=== PATIENT | female | born 1985 | race Caucasian/White ===

== ENCOUNTER 2023-03-06 08:33 | Emergency (ER) | payer OTHER, BC ==
[~2023-03-06] VITALS: Ht 157.5 cm; Wt 111.1 kg
[~2023-03-06 08:33] MED LIST: FLUOXETINE HCL20 MG PO
[2023-03-06] MEDS ORDERED: LISINOPRIL-HCT1 EACH PO (08:49)
[2023-03-06 09:27] VITALS: BP 130/70
== END 2023-03-06 09:27 | disposition home or self-care (01) ==
LOC: ED 08:33
DX: S61.213A Laceration without foreign body of left middle finger without damage to nail, initial encounter (principal); W26.8XXA Contact with other sharp object(s), not elsewhere classified, initial encounter; Y99.0 Civilian activity done for income or pay; Z88.0 Allergy status to penicillin; Z79.899 Other long term (current) drug therapy
CPT/HCPCS: 99282

== ENCOUNTER 2025-09-01 05:47 | Inpatient (IN) | payer BC ==
[2025-09-01] VITALS (8 sets, daily range): BP systolic 118–148; BP diastolic 62–95
[~2025-09-01] VITALS: Ht 157.5 cm; Wt 114.0 kg
--- NOTE | ~2025-09-01 | OR ---
[facility] [address] [place] [address] Draft DATE OF OPERATION: 09/01/2025 SURGEON: Sreedhar Rueda MD PREOPERATIVE DIAGNOSIS: Menorrhagia. POSTOPERATIVE DIAGNOSIS: Menorrhagia. PROCEDURE: Total vaginal hysterectomy converted to total abdominal hysterectomy via Pfannenstiel skin incision. FINDINGS: A 12-week size uterus, normal fallopian tubes and ovaries. ANESTHESIA: General plus local. BRONZER: None. IV FLUID: 1600 mL crystalloid. ESTIMATED BLOOD LOSS: 450 mL. URINE OUTPUT: 60 mL clear urine. DRAINS: Rabago to gravity. SPECIMENS: Uterus, cervix and bilateral fallopian tubes. COUNTS: Correct x2. PATIENT NAME: YOLETTE JEFFRIES OPERATIVE REPORT DATE OF : 87 REPORT #: [id number] PHYSICIAN: SREEDHAR RUEDA MD PCP: NO PRIMARY CARE PHYSICIAN REPORT IS CONFIDENTIAL AND NOT TO BE RELEASED WITHOUT AUTHORIZATION [facility] [address] [place] [address] Draft COMPLICATIONS: None. TECHNIQUE IN DETAIL: With informed consent and negative hCG, patient was taken to the operating room where she was given general endotracheal anesthesia. She was given 2 g of Ancef intravenously for perioperative infection prophylaxis. Lower extremities also had been placed in SCD pneumatic compression devices for DVT prophylaxis. Her lower extremities were placed in low lithotomy position using Yellofin stirrups. She was then prepped and draped in sterile fashion and a time-out was performed per protocol. Her lower extremities were then placed in high lithotomy position. A short posterior weighted speculum was placed into the vagina. She was also placed in Trendelenburg position. Single-tooth tenaculum was placed on the cervix. The junction between the bladder and the cervix was marked with the electrocautery device. The junction between the cervical mucosa and the posterior cul-de-sac mucosa was also marked. A total of 20 mL of 0.5% Marcaine with epinephrine were injected circumferentially around the cervix. Using the electrocautery device an incision was made around the entire cervix. We then placed an Allis on the anterior mucosa for elevation. Using Metzenbaum scissors we dissected away the underlying cervicovaginal fascia from the cervix. Once we had advanced proximally a cm I used blunt dissection to dissect away the overlying cervicovaginal fascia from the cervix. Attempts to identify the peritoneum were made but were unsuccessful. Attention was then turned to the posterior cul-de-sac. The recto-cervical fascia was sharply dissected away from the cervix. Once we got down into the layer of the posterior peritoneum, this was incised with Torres scissors. An 0 Vicryl suture was placed to tag the posterior peritoneum to the posterior cuff. A long posterior weighted speculum was then placed. There was indirect visualization of intraabdominal fat. Using a curved Britton clamp, the left uterosacral ligament was clamped, cut, and suture ligated with 0 Vicryl. The same procedure was carried out on the right uterosacral ligament. We then attempted to identify the peritoneum anteriorly again and we were unable to do this. I then performed a bit more sharp dissection to advance up the cervix and try to identify the anterior peritoneum again but was unsuccessful. I then used a curved Kenton to clamp, cut and ligate the cardinal ligament, first on the left then on the right side. I then turned my attention to the anterior cervix again. I then sharply dissected and bluntly dissected away the overlying cervical vaginal fascia from the cervix and lower uterine segment. At this point, I made the assessment that I had gone a little bit deep into the cervix, so I pulled the tissue distally towards me and began sharp dissection above the tissue that I thought was part of the cervix. I was then able to identify a plane that I believe to be between the bladder and the lower uterine segment. I identified what I believe to be PATIENT NAME: YOLETTE JEFFRIES OPERATIVE REPORT DATE OF : [birth year] REPORT #: [id number] PHYSICIAN: SREEDHAR RUEDA MD PCP: NO PRIMARY CARE PHYSICIAN REPORT IS CONFIDENTIAL AND NOT TO BE RELEASED WITHOUT AUTHORIZATION [facility] [address] [place], [place] [address] Draft the anterior peritoneum and then grasped it and elevated it and incised it with Metzenbaum scissors. At this point, I was not certain whether or not I had entered the peritoneum. So, I decided to take another bite of the cardinal ligament and used a curved Kenton to clamp, cut and ligate the left and right cardinal ligaments again. I believe on the patient's right side I was able to clamp, cut and ligate the right uterine artery. I then attempted to attain the anterior cul-de-sac again. I placed a right angle retractor, but it was not able to advance. I used my finger and felt then made the assessment that I may have gotten anteriorly, so I used a Zahra to place the retractor anteriorly. This passed easily and went past the uterine fundus. At this point, I made attempts to identify intraabdominal fat, but I was unable. I was also unable to feel with my finger to the top of the uterus. At this point, I had concern that the bladder may have been entered. I then took a straight catheter and emptied the bladder and approximately 25 mL of clear urine came out. This was very reassuring. I made further attempts to identify pelvic and intraabdominal contents anteriorly but I was unable. At this point, I could not be 100% certain that I was not somehow in the bladder and was concerned that continuing to clamp, cut and ligate might risk the bladder and I might be cutting and ligating the bladder. At this time, I made the decision to convert to an abdominal approach for patient's safety. At this point, the surgical site was assessed to be hemostatic. A vaginal pack was placed. We needed to take down the drape and performed an instrument and sponge count as well as do an abdominal prep. This of course took several minutes. Once this was performed and the abdomen was ready, I made an approximately 8 inch Pfannenstiel skin incision. Sharp dissection was carried down to the layer of the rectus fascia which was nicked in the midline. This rectus lidia was enlarged bilaterally using sharp dissection. The rectus muscles were taken down from the fascia using a combination of sharp and blunt dissection both superiorly and inferiorly. The rectus muscles were in the midline and the separation was carried out inferiorly using sharp and blunt dissection. Peritoneum was entered bluntly. Peritoneal opening was enlarged with sharp dissection. The bowel was then packed with moist laparotomy sponges. An Stuart retractor was inserted into the abdomen. The left and right tubo-ovarian ligaments were grasped with zeppelins so that the uterus could be elevated. Assessment was then made of the bladder and the initial assessment was that the bladder was intact and had not been entered. At this point, the left round ligament was grasped with a Elham, elevated, and suture ligated with 0 Vicryl. The medial aspect of the round ligament was transected with electrocautery device. The broad ligament was entered. The tubo-ovarian ligament between ovary and uterus was clamped, cut, and suture ligated with 0 Vicryl. First flashed and then complete ligation. The left uterine artery was skeletonized and then clamped, cut, and suture ligated with 0 Vicryl. Attention was then turned to the right side. The right round ligament was grasped with a Elham, elevated, and suture ligated PATIENT NAME: YOLETTE JEFFRIES OPERATIVE REPORT DATE OF : [birth year] REPORT #: [id number] PHYSICIAN: SREEDHAR RUEDA MD PCP: NO PRIMARY CARE PHYSICIAN REPORT IS CONFIDENTIAL AND NOT TO BE RELEASED WITHOUT AUTHORIZATION [facility] [address] [place], [place] [address] Draft with 0 Vicryl. The medial aspect was transected with electrocautery. The broad ligament was opened. The bladder flap was developed a little bit more on the right side as needed. The tubo-ovarian ligament on the right side was then clamped with a curved Britton clamp and suture ligated x2. The tenacula were left from the vaginal portion were removed vaginally and the uterus was removed. At this point, a Rabago catheter was placed and we filled the bladder with 180 mL of sterile saline. The bladder was then inspected and found to be appropriately enlarged and completely intact. At this point, the left fallopian tube was grasped with Lonsdale and using the hand-held LigaSure device the tube was excised along the mesosalpinx. The same procedure was carried on the right fallopian tube using the ligature hand-held device. Of note, we identified the fimbria of the fallopian tube on both sides ensuring that we were removing the tube. The pedicles were inspected and the left pedicle was slightly oozy, so I used an 0 Vicryl jydgtk-bp-dkjoj stitch in that region where the left fallopian tube was removed and this rendered that hemostatic. I then irrigated the pelvis. I inspected from above and found everything to be hemostatic. All sutures were removed from above. The rectus muscles were then reapproximated using 2-0 chromic in a running fashion. The rectus muscle bellies were inspected. There was one area of oozing was noted on the right side and using a 2-0 chromic this was rendered hemostatic with a hwdbns-zu-btfzu stitch. The rectus fascia was then reapproximated using 0 Vicryl in a running fashion. Superficial incision was irrigated and rendered hemostatic with the electrocautery device. The subcutaneous tissue was reapproximated with 2-0 chromic in a running fashion and the skin was reapproximated with Insorb stapler device. At this point, attention was turned down below. The pedicles were inspected as well as the posterior cuff. There was some oozing on the right pedicle which was rendered hemostatic with an 0 Vicryl shallow pglbdy-xp-xphva stitch. The posterior vaginal cuff was then closed using a 2-0 Vicryl running lock stitch. This improved hemostasis significantly. All pedicles were then inspected from below and all were found to be hemostatic. We then closed the vaginal cuff from below using 0 Vicryl hfjgxr-mz-lrifz stitch in a running locked fashion starting from the anterior aspect and proceeding posteriorly. Estradiol laden vaginal pack was then placed. The Rabago had been removed once we were sure that the bladder was intact. A new Rabago was then placed and a large amount of clear urine escaped the bladder and was seen in the Rabago tube. All sponge and instrument counts were correct. DISPOSITION: The patient was extubated in the operating room and she was taken to the recovery room in stable condition. PATIENT NAME: YOLETTE JEFFRIES OPERATIVE REPORT DATE OF : [birth year] REPORT #: [id number] PHYSICIAN: SREEDHAR RUEDA MD PCP: NO PRIMARY CARE PHYSICIAN REPORT IS CONFIDENTIAL AND NOT TO BE RELEASED WITHOUT AUTHORIZATION [address] [address] Draft MD AGUSTINA Basilio/YAMILA /[id number] Copies: ~ PATIENT NAME: YOLETTE JEFFRIES OPERATIVE REPORT DATE OF : [birth year] REPORT #: [id number] PHYSICIAN: SREEDHAR RUEDA MD PCP: NO PRIMARY CARE PHYSICIAN REPORT IS CONFIDENTIAL AND NOT TO BE RELEASED WITHOUT AUTHORIZATION
[~2025-09-01 05:47] MED LIST changes: +DULOXETINE HCL60 MG PO; +LACTATED RINGER'S 1,000 ML IV SCH; +LISINOPRIL-HCT1 EACH PO; +VITAMIN D21250 MCG PO; +VITAMIN D325 MC2 PO
[2025-09-01] MEDS ORDERED: ROCURONIUM BROMIDE 50 MG/5 ML SYR ONE ×2 (06:52→10:02)
[2025-09-01] MEDS ORDERED: LIDOCAINE HCL 2% 5 ML SDV ONE (06:52)
[2025-09-01] MEDS ORDERED: CEFAZOLIN SODIUM 2 GM in SODIUM CHLORIDE 0.9% 100 ML IV SCH (07:00)
[2025-09-01] MEDS ORDERED: LIDOCAINE HCL 1% 5 ML SDV INJ ONE (07:00)
[2025-09-01] MEDS ORDERED: IBLOOD GLUCOSE TEST STRIP 1 EA TEST VI PRN ×2 (07:00→09:15)
[2025-09-01] MEDS ORDERED: LIDOCAINE 1% W/ EPI 1:200,000 30 ML SDV ONE (07:04)
[2025-09-01] MEDS ORDERED: BUPIVACAINE HCL 0.5% 30 ML VIAL ONE (07:04)
[2025-09-01] MEDS ORDERED: estradioL 0.01% 42.5 GM TUBE ONE (07:05)
[2025-09-01] MEDS ORDERED: fentaNYL citrate 100 MCG/2 ML VIAL ONE (08:29)
[2025-09-01] MEDS ORDERED: SEVOFLURANE 250 ML BTL ONE (08:36)
[2025-09-01] MEDS ORDERED: ACETAMINOPHEN 1,000 MG/100 ML VIAL ONE (08:54)
[2025-09-01] MEDS ORDERED: KETOROLAC TROMETHAMINE 30 MG/ML VIAL ONE (08:54)
[2025-09-01] MEDS ORDERED: DEXAMETHASONE SOD PHOS 4 MG/ML VIAL ONE (08:54)
[2025-09-01] MEDS ORDERED: MAGNESIUM SULFATE 1 GM/2 ML VIAL ONE (08:55)
[2025-09-01] MEDS ORDERED: NALOXONE HCL 0.4 MG SYR IV PRN ×2 (09:15→13:15)
[2025-09-01] MEDS ORDERED: fentaNYL citrate 50 MCG/ML SDV IV PRN (09:15)
[2025-09-01] MEDS ORDERED: HYDROmorphone HCL 1 MG/ML SYR IV PRN (09:15)
[2025-09-01] MEDS ORDERED: PHENYLEPHRINE HCL IN 0.9% NACL 1 MG/10 ML SYR ONE (11:11)
[2025-09-01] MEDS ORDERED: Ropivacaine HCl 0.5% 30 ML VIAL ONE (11:29)
[2025-09-01] MEDS ORDERED: SUGAMMADEX SODIUM 200 MG/2 ML ML ONE (11:43)
--- NOTE | 2025-09-01 13:00 | NUR ---
09/01/25 Jazmine Mcdermott 1255: PT ARRIVES TO PACU NON AROUSAL WITH ORAL AIRWAY IN PLACE. REPORT RECEIVED FROM CORPORATE COMMUNICATIONS MANAGER. LE 1258: ORAL AIRWAY IS REMOVED.
[2025-09-01] MEDS ORDERED: SENNOSIDES/DOCUSATE 1 EA TAB PO SCH (13:09)
[2025-09-01] MEDS ORDERED: OXYCODONE HCL 5 MG TAB PO PRN (13:15)
[2025-09-01] MEDS ORDERED: FAMOTIDINE 20 MG TAB PO PRN (13:15)
[2025-09-01] MEDS ORDERED: FAMOTIDINE 20 MG/ 2 ML VIAL IV PRN (13:15)
[2025-09-01] MEDS ORDERED: LACTATED RINGER'S 1,000 ML IV SCH (13:15)
[2025-09-01] MEDS ORDERED: MORPHINE SULFATE 10 MG/ML VIAL IV PRN (13:15)
[2025-09-01] MEDS ORDERED: SIMETHICONE 80 MG CHEW PO PRN (13:15)
[2025-09-01] MEDS ORDERED: MAGNESIUM HYDROXIDE/AL HYDROX 30 ML CUP PO PRN (13:15)
[2025-09-01] MEDS ORDERED: ACETAMINOPHEN 500 MG TAB PO SCH (14:00)
[2025-09-01] MEDS ORDERED: IBUPROFEN 800 MG TAB PO SCH (14:00)
--- NOTE | 2025-09-01 14:09 | NUR ---
PATIENT BROUGHT TO THE FLOOR AT 1403, VITALS WNL. PATIENT DENIES PAIN, SLIGHT NAUSEA. AT BEDSIDE. PATIENT HAS A ESCOBAR AND SCDS RUNNING. PATIENT IS DROWSY BUT WILL RESPOND WHEN TALKING. PATIENT HAS GLASSES ON.
--- NOTE | 2025-09-01 15:17 | NUR ---
VITALS TAKEN. PATIENT ON RA NOW AND STATING NORMAL. PAIN CONTROLLED AT 4/10. CALL LIGHT WITHIN REACH. PATIENT WANTS TO REST.
[2025-09-01] MEDS ORDERED: SEVOFLURANE 250 ML BTL INH ONE (15:59)
[2025-09-01] MEDS ORDERED: SIMETHICONE 80 MG CHEW PO SCH (17:00)
--- NOTE | 2025-09-01 17:22 | NUR ---
PATIENT DOING WELL, PAIN CONTROLLED UNLESS SHE COUGHS. VITALS WNL. ESCOBAR IN PLACE. PATIENT HOLDING GOOD ON RA NOW. PATIENT UNABLE TO EAT DINNER WHEN SHE SAT UP SHE GOT HOT AND LIGHT HEADED. SHE WILL JUST DO PUDDING AND CRACKERS FOR NOW.
--- NOTE | 2025-09-01 18:11 | NUR ---
VAGINAL PACKING REMOVED, PATIENT TOLERATED WELL. EVERYTHING WNL. PACKING WRIST BAND REMOVED.
--- NOTE | 2025-09-01 18:54 | NUR ---
NO VAGINAL BLEEDING SINCE REMOVING THE PACKING. PATIENT MOVED TO HER RIGHT SIDE TO GET OFF HER BACK FOR AWHILE. SCANT DRAINAGE ON ABDOMEN DRESSING. DENIES ANY OTHER NEEDS. FRESH WATER GIVEN.
--- NOTE | 2025-09-01 19:15 | NUR ---
REPORT REC'D FROM CHA HENSLEY. PT RESTING QUIETLY IN BED. IV INFUSING TO L HAND LR @ 125ML/HR. PT DENIES PAIN AT THIS TIME. OFFERED PO NUTRITION. CALL FLORENTINO IN REACH, PT INSTRUCTED TO CALL FOR ASSISTANCE PRN, VERBALIZED UNDERSTANDING. BED IN LOW POSITION AND LOCKED, SIDERAILS UP X2.
--- NOTE | 2025-09-01 23:10 | NUR ---
PT RESTING IN BED, SPO2 92%. PT DENIES C/O AT THIS TIME. NO BLEEDING NOTED, IV INFUSING AT 125ML/HR. CALL FLORENTINO IN REACH, BED IN LOW POSITION AND LOCKED. SIDERAILS UP X2
[2025-09-02] VITALS (12 sets, daily range): BP systolic 114–145; BP diastolic 61–84
--- NOTE | 2025-09-02 01:11 | NUR ---
PT OOB TO CHAIR, PROVIDED CHEESE STICKS AND APPLE JUICE.NO BLEEDING NOTED, NO NAUSEA OR DIZZINESS REPORTED. PT INSTRUCTED TO CALL FOR ASSISTANCE. CALL FLORENTINO IN REACH. SPO2 97% ON RA, IV INFUSING TO L FA. F/C DRAINING CLEAR YELLOW URINE.
[2025-09-02 05:35] LABS: BASOPHILS 0.1 % (0.1-1.2); EOSINOPHILS 0.1 % (0.7-5.8); LYMPHOCYTES 12.5 % (19.3-51.7); MCH 25.2 PG (25.6-32.2); MCHC 31.9 g/dL (32.2-35.5); MCV 79.0 fL (79.4-94.8); MONOCYTES 9.6 % (4.7-12.5); NEUTROPHILS 77.6 % (34.0-71.1); RBC 3.85 M/uL (3.93-5.22)
--- NOTE | 2025-09-02 05:41 | NUR ---
PT ASSISTED BACK TO BED FROM RECLINER. NO BLEEDING NOTED TO PAD, ABD DRESSING NO DRAINAGE. IV INFUSING TO L HAND, F/C DRAINING CLEAR YELLOW URINE. SCD'S PLACED. PT PROVIDED FLUIDS. CALL FLORENTINO IN REACH, BED IN LOW POSITION AND LOCKED. PT INSTRUCTED TO CALL FOR ASSISTANCE PRN, VERBALIZED UNDERSTANDING.
--- NOTE | 2025-09-02 07:43 | NUR ---
REPORT RECEIVED FROM SHERITA EUBANKS. PATIENT IN BED, MD NGUYEN AT BEDSIDE. VERBAL ORDERS RECEIVED TO DC ESCOBAR CATHETER AND IV FLUID, ENCOURAGE AMBULATION, ANS MAINTAIN REGULAR DIET, NO FURTHER ORDERS. PATIENT DENIES CONCERNS AT THIS TIME. CALL LIGHT AND PERSONAL BELONGINGS IN REACH.
--- NOTE | 2025-09-02 08:18 | NUR ---
ESCOBAR CATH DC'D PER MD ORDER, PATIENT TOLERATED WELL. 10 ML WATER REMOVED FROM [place], TIP INTACT. ASSESMENT COMPLETE. MEDICATIONS ADMINISTERED PER EMAR. BREAKFAST AT BEDSIDE. ASSISTED PATIENT FROM BED TO CHAIR FOR BREAKFAST. CALL LIGHT AND PERSONAL BELONGINGS IN REACH OF PATIENT. PATIENT DENIES CONCERNS.
[2025-09-02] MEDS ORDERED: DULOXETINE HCL 60 MG CAP PO SCH (09:00)
--- NOTE | 2025-09-02 09:18 | NUR ---
PATIENT'S ESCOBAR DC'D BY RN, FINAL OUTPUT DOCUMENTED BY THIS AXLE POLISHER. SBA TO THE BATHROOM. PATIENT WAS STEADY ON THEIR FEET WITH NO REPORTS OF PAIN OR NAUSEA.
--- NOTE | 2025-09-02 09:39 | NUR ---
MED REC COMPLETE
--- NOTE | 2025-09-02 10:43 | NUR ---
PATIENT SITTING UP IN CHAIR. CALL LIGHT AND PERSONAL BELONGINGS IN REACH OF PATIENT. IV SALINE LOCKED PER ORDER. PATIENT WITH ONE VOID, SEE I AND O. PATIENT DENIES CONCERNS AT THIS TIME. CALL LIGHT AND PERSONAL BELONGINGS IN REACH OF PATIENT. CPOX IN PLACE.
--- NOTE | 2025-09-02 11:11 | NUR ---
ALERT AND ORIENTED IN RECLINER. PATIENT LIVES IN A HOUSE WITH STAIRS, NO ISSUES WITH STAIRS. DEMOGRAPHICS VERIFIED, PATIENT DOES HAVE PCP, CHRISTOPHER GOODRICH PA-C, ADMITTING UPDATED. NO DME AT HOME. DRIVES AT BASELINE. NO FINANCIAL ISSUES WITH UTILITES, FOOD OR MEDICATIONS. STATES SHE PLANS TO DC TO HOME WHEN MEDICALLY READY, POTENTIALLY TOMORROW. NO CM NEEDS AT THIS TIME.
--- NOTE | 2025-09-02 12:30 | NUR ---
PATIENT SITTING UPRIGHT IN BED. SCHEDULED MEDICATIONS ADMINISTERED. CPOX DCD PER ORDER. CALL LIGHT AND PERSONAL BELONGINGS IN REACH OF PATIENT. LUNCH AT BEDSIDE. PATIENT DENIES CONCERNS.
--- NOTE | 2025-09-02 12:42 | NUR ---
PATIENT AMBULATING EL
--- NOTE | 2025-09-02 13:45 | NUR ---
UR CLINICAL REVIEW: MCG-PER MCG REVIEW MEETS INPT FOR [facility] WILL NEED FOR SERIAL LABS, PAIN CONTROL AND MONITORING. [facility] 09/01/25 @ 8270 ORDER MATCHES REG CLINICALS FAXED TO [facility] FOR AUTH REVIEW DISCHARGE TO HOME WHEN STABLE ADD 09/03/25
--- NOTE | 2025-09-02 14:11 | NUR ---
PATIENT IN BED, CALL LIGHT AND PERSONAL BELONGINGS IN REACH. SCHEDULED MEDICATION ADMINISTERED. PATIENT EDUCATION PROVIDED ON PAIN MANAGMENT. PATIENT VERBALIZED UNDERSTANDING AND DENIES QUESTIONS OR CONCNERNS. CALL LIGHT AND PERSONAL BELONGINGS IN REACH OF PATIENT.
--- NOTE | 2025-09-02 16:35 | NUR ---
PATIENT SITTING IN CHAIR. MEDICATION ADMINISTERED PER EMAR. CALL LIGHT AND PERSONAL BELONGINGS IN REACH OF PATIENT. PATIENT DENIES CONCNERS AT THIS TIME.
--- NOTE | 2025-09-02 16:59 | NUR ---
ASSISTED PATIENT TO WASH HAIR. PATIENT BACK IN CHAIR WITH FRIEND VISITING. DINNER AT BEDSIDE. CALL LIGHT AND PERSONAL BELONGINGS IN REACH. PATIENT DENIES CONCERNS AT THIS TIME.
--- NOTE | 2025-09-02 18:40 | NUR ---
PATIENT IN BED, CALL LIGHT AND PERSONAL BELONGINGS IN REACH. PATIENT DENIES CONCERNS. VITAL SIGNS COMPLETE.
--- NOTE | 2025-09-02 19:29 | NUR ---
REPORT RECEIVED FROM DAY SHIFT RN. PATIENT RESTING IN BED. DENIES NEEDS AT THIS TIME. CALL LIGHT IN REACH.
--- NOTE | 2025-09-02 21:20 | NUR ---
COUNTERINTELLIGENCE SPECIALIST OBTAINED VITALS AND I&O. PT STATED THAT SHE HAD 2 BM. ICE WATER REFILLED. PT STATES NO FURTHER NEEDS AT THIS TIME. CALL LIGHT WITHIN REACH.
--- NOTE | 2025-09-02 21:37 | NUR ---
PATIENT GIVEN SCHEDULED MEDICATIONS. WATER AT BEDSIDE. PATIENT IS READY AND WANTS TO GO TO SLEEP. LIGHTS TURNED OFF. GLASSES AT BEDSIDE TABLE. BED IN LOW POSTION. CALL LIGHT WITHIN REACH. DENIES ANY OTHER CARE.S
--- NOTE | 2025-09-03 00:10 | NUR ---
PATIENT RESTING IN BED ON BACK. DENIES NEEDS AT THIS TIME. CALL LIGHT IN REACH.
--- NOTE | 2025-09-03 01:19 | NUR ---
PATIENT RESTING IN BED ON BACK WITH EYES CLOSED. RESPIRATIONS EVEN AND UNLABORED. CALL LIGHT IN REACH.
[2025-09-03 05:57] VITALS: BP 120/73
--- NOTE | 2025-09-03 06:13 | NUR ---
PATIENT RESTING IN BED. VS AND I&Os OBTAINED AND RECORDED. PATIENT ABD INCISION C/D/I. PATIENT STATES SCANT SPOTTING IN MITZI PAD. SCHEDULED MEDICATION ADMINISTERED. PATIENT DENIES PAIN. NO FURTHER NEEDS. CALL LIGHT IN REACH.
--- NOTE | 2025-09-03 07:09 | NUR ---
RECIEVED REPORT FROM CHA HERNANDEZ. PT IS RESTING IN BED WITH EYES OPEN. RR EVEN AND UNLABORED, DENIED ANY NEEDS AT THIS TIME. CALL LIGHT AND PERSONAL BELONGINGS ARE WITHIN REACH.
[2025-09-03] MEDS ORDERED: OXYCODONE HCL5 M1 PO (07:52)
[2025-09-03] MEDS ORDERED: IBUPROFEN600 MG PO (07:52)
[2025-09-03] MEDS ORDERED: ACETAMINOPHEN500 MG PO (07:53)
--- NOTE | 2025-09-03 09:32 | NUR ---
INTO SEE PATIENT. PATIENT TO DISCHARGE HOME TODAY. NO FUTHER CM NEEDS.
--- NOTE | 2025-09-03 10:00 | NUR ---
PT IS AMBULATING AROUND ROOM AT THIS TIME.
[2025-09-03 10:15] VITALS: BP 148/88
[2025-09-03 10:39] VITALS: BP 148/88
--- NOTE | 2025-09-04 18:59 | PATH ---
[facility] [address] [place], [place] [address] Signed SPECIMEN(S): A UTERUS, CERVIX AND FALLOPIAN TUBES SPECIMEN SOURCE: A. UTERUS, CERVIX AND FALLOPIAN TUBES CLINICAL HISTORY: G5, P4, history of menorrhagia FINAL PATHOLOGIC DIAGNOSIS: Uterus cervix, and bilateral tubes per requisition: - Benign proliferative endometrium, negative for hyperplasia or atypia. - Benign myometrial leiomyomas. - Ectocervical epithelium with low-grade squamous intraepithelial lesion (KAREN-1) free of the ectocervical margin. - Benign endocervical mucosa. - Benign bilateral oviducts. JVR MICROSCOPIC EXAMINATION: Histologic sections of all submitted blocks are examined by light microscopy. These findings, together with the gross examination, support the pathologic diagnosis. A p16 immunostain is performed with appropriate controls on block A1 and is negative for full-thickness epithelial staining supporting the diagnosis. JVR GROSS DESCRIPTION: The specimen, labeled and designated "Bulmaro Jeffries., uterus cervix, and bilateral tubes per requisition," is received in formalin and consists of a 233 g, 12.7 cm fundus to cervix, 7.1 cm cornu to cornu, 5.8 cm anterior to posterior uterus with detached bilateral fallopian tubes. The ovaries are absent. The serosal surface is yee-pink and smooth. The attached cervix measures 4 x 3.7 cm and has a 1.8 cm slitlike os. The anterior cervix is inked blue while the posterior cervix is inked black. The endometrial canal measures 6 x 3.5 cm and has a yee-pink endometrium averaging 0.4 cm in thickness. There are multiple intramural and subserosal nodules ranging from 0.6 to 1.6 cm in greatest dimension. The myometrium averages 1.6 cm in thickness and is yee-pink and trabecular. There are no additional masses or polyps identified. The first arbitrarily PATIENT NAME: YOLETTE JEFFRIES PATHOLOGY DATE OF : 87 REPORT #: [id number] PHYSICIAN: ADA MCKEON PCP: CHRISTOPHER GOODRICH PA-C REPORT IS CONFIDENTIAL AND NOT TO BE RELEASED WITHOUT AUTHORIZATION [facility] [address] [place], [place] [address] Signed designated fallopian tube measures 5.4 x 1.1 x 1 cm and has an attached fimbriated end. The serosal surface is violaceous and smooth with no apparent paratubal cyst although there is moderate amount of attached yellow lobulated adipose. The second arbitrarily designated fallopian tube measures 4.5 x 1 x 0.9 cm. The serosal surface is violaceous and smooth with no apparent paratubal cyst although there is moderate amount of attached yellow lobulated adipose. The specimen is serially sectioned revealing a pinpoint lumen. [employer] sections are submitted as follows: Cassette Summary: (A1) 12-3 o'clock cervix, RS; 3-6 o'clock cervix, RS (A2) 6-9 o'clock cervix, RS; 9-12 o'clock cervix, RS (A3) anterior endomyometrium with white whorled nodule (A4) posterior endomyometrium with white whorled nodule (A5-A6) first fallopian tube, fimbriated end totally embedded (A7-A8) second fallopian tube, fimbriated end totally embedded AA (under the direct supervision of a pathologist) The Gross Description was prepared using a voice recognition system. The report was reviewed for accuracy; however, sound-alike word errors, addition and/or deletions may occur. If there is any question about this report, please contact Client Services. ADDITIONAL NOTES: Immunohistochemical and/or in situ hybridization studies if performed in this case included appropriate positive controls that reacted as expected. This test was developed and its performance characteristics determined by [employer]. It has not been cleared or approved by the U.S. Food and Drug Administration. The FDA has determined that such clearance or approval is not necessary. This test is used for clinical purposes. It should not be regarded as investigational or for research. [facility] is certified under the Clinical Laboratory Improvement Amendments of 1988 (CLIA) as qualified to perform high complexity clinical laboratory testing. PERFORMING LABORATORY: Technical component was performed by [facility], [address] [place] [id number] (CLIA# [id number]). Professional interpretation was performed by [facility] [place] [facility] - [address] [place] [address] (CLIA#: [id number]). PATIENT NAME: YOLETTE JEFFRIES PATHOLOGY DATE OF : [birth year] REPORT #: [id number] [facility]YSICIAN: [facility] PCP: CHRISTOPHER GOODRICH PA-C REPORT IS CONFIDENTIAL AND NOT TO BE RELEASED WITHOUT AUTHORIZATION [facility] [address] [place], [place] [address] Signed Diagnostician: Nura Mills MD Pathologist Electronically Signed 09/04/2025 Copies: ~ PATIENT NAME: YOLETTE JEFFRIES [facility] PATHOLOGY DATE OF : 87 REPORT #: [id number] PHYSICIAN: ADA PATHOLOGY PCP: CHRISTOPHER GOODRICH PA-C REPORT IS CONFIDENTIAL AND NOT TO BE RELEASED WITHOUT AUTHORIZATION
== END 2025-09-03 10:45 | disposition home or self-care (01) | DRG 742 ==
LOC: DS 05:47 → MS 13:54 → DS 13:55 → MS 13:55
PROVIDERS: ADMIT Obstetrics & Gynecology; ATTEND Obstetrics & Gynecology
PROC: 0UT70ZZ Resection of Bilateral Fallopian Tubes, Open Approach (ICD-10-PCS; 2025-09-01)
PROC: 0UJD7ZZ Inspection of Uterus and Cervix, Via Natural or Artificial Opening (ICD-10-PCS; 2025-09-01)
PROC: 0T9B70Z Drainage of Bladder with Drainage Device, Via Natural or Artificial Opening (ICD-10-PCS; 2025-09-01)
PROC: 0UT90ZZ Resection of Uterus, Open Approach (ICD-10-PCS; principal; 2025-09-01 07:30)
DX: N92.0 Excessive and frequent menstruation with regular cycle (principal); Z68.42 Body mass index [BMI] 45.0-49.9, adult; G47.30 Sleep apnea, unspecified; E66.9 Obesity, unspecified; F32.A Depression, unspecified; Z88.0 Allergy status to penicillin
CPT/HCPCS: 00840; 36415; 85025; A9270; J0131; J0165; J0688; J1100; J1171; J1885; J2003; J2270; J2405; J2704; J2795; J3010; J3475; J3490; J7121